=== PATIENT | female | born 1935 | race Caucasian/White ===

== ENCOUNTER 2020-11-01 19:17 | Inpatient (IN) | payer OTHER, MEDICAID ==
[~2020-11-01] VITALS: Ht 147.3 cm; Wt 88.4 kg
[2020-11-01 21:05] LABS: Nucleated Red Blood Cells % 0.1 %
[2020-11-01 21:09] LABS: Basophils # (auto) 0 10 ^3/uL (0-0.2); Basophils % (auto) 0.5 % (0.0-2.0); Eosinophils # (auto) 0.2 10 ^3/uL (0-0.8); Eosinophils % (auto) 2.4 % (0.0-7.0); Hematocrit 30.1 % (41.0-53.0); Hemoglobin 10.3 g/dL (13.5-17.5); Lymphocytes # (auto) 2.9 10 ^3/uL (0.4-5.4); Lymphocytes % (auto) 40.3 % (10.0-50.0); Mean Corpuscular Hemoglobin 32.3 pg (28.0-32.0); Mean Corpuscular Hgb Conc. 34.2 g/dL (32.0-36.0); Mean Corpuscular Volume 94.3 fL (80.0-100.0); Monocytes % (auto) 13.6 % (0.0-12.0); Neutrophils # (auto) 3.1 10 ^3/uL (1.6-8.6); Neutrophils % (auto) 43.2 % (37.0-80.0); Red Blood Cells 3.19 10^6/uL (4.5-5.90); Red Cell Distribution Width 14.9 % (11.8-14.3); White Blood Cell 7.2 10^3/uL (4.4-10.8)
[2020-11-01 21:18] LABS: INR 1.09 (0.9-1.15); Partial Thromboplastin Time 27.1 sec (23.0-31.2)
[2020-11-01 21:21] LABS: Albumin 2.6 g/dL (3.4-5.0); Anion Gap 4 (5-15); Blood Urea Nitrogen 13 mg/dL (7-18); Calcium 8.1 mg/dL (8.5-10.1); Carbon Dioxide 28 mmol/L (21-32); Chloride 112 mmol/L (98-107); Glucose 82 mg/dL (74-106); Magnesium 2.1 mg/dL (1.6-2.6); Potassium 3.5 mmol/L (3.5-5.1); Sodium 144 mmol/L (136-145)
[2020-11-01 21:28] LABS: Alanine Aminotransferase 27 U/L (16-61); Alkaline Phosphatase 134 U/L (45-117); Aspartate Aminotransferase 28 U/L (15-37); BUN/Creatinine Ratio 27.1; Bilirubin, Total 0.4 mg/dL (0.2-1.0); GFR African American 213 mL/min; GFR Non-African American 176 mL/min; Total Protein 5.4 g/dL (6.4-8.2)
[2020-11-01] MEDS ORDERED: ACETAMINOPHEN 325 MG TAB PO PRN (21:45)
[2020-11-01] MEDS ORDERED: NITROGLYCERIN 0.4 MG SL TAB SL PRN (21:45)
[2020-11-01] MEDS ORDERED: MORPHINE SULF INJ 2 MG/ML SYRINGE 1ML IV PRN (21:45)
[2020-11-01] MEDS ORDERED: ONDANSETRON HCL 4 MG/2 ML VIAL IV PRN (21:45)
[2020-11-01] MEDS ORDERED: ATORVASTATIN 20 MG TAB PO SCH (22:00)
[2020-11-02 00:41] LABS: Urine Bacteria FEW /hpf (None Seen); Urine Blood Negative /uL (Negative); Urine Hyaline Cast FEW /lpf (0 - 2); Urine Mucus FEW (None Seen); Urine Specific Gravity 1.019 (1.001-1.035); Urine WBC 21 /hpf (0 - 5)
[2020-11-02 00:50] VITALS: BP 121/66
[2020-11-02] MEDS ORDERED: LANS30CA57 PO (03:43)
[2020-11-02] MEDS ORDERED: MONT10TA42 PO (03:43)
[2020-11-02] MEDS ORDERED: METO-281 PO (03:43)
[2020-11-02] MEDS ORDERED: DORZ2SOL18 EACHEYE (03:43)
[2020-11-02] MEDS ORDERED: TIZA4CAP PO (03:43)
[2020-11-02] MEDS ORDERED: ESCI10TA PO (03:43)
[2020-11-02] MEDS ORDERED: IPRIH INH (03:43)
[2020-11-02] MEDS ORDERED: HYDR-4798 PO (03:43)
[2020-11-02] MEDS ORDERED: POTA1TAB61 PO (03:43)
[2020-11-02] MEDS ORDERED: FURO1TAB33 PO (03:43)
[2020-11-02] MEDS ORDERED: PRAM2.25 PO (03:43)
[2020-11-02] MEDS ORDERED: METO25TA93 PO (03:43)
[2020-11-02] MEDS ORDERED: DOCU1CAP31 PO (03:43)
[2020-11-02] MEDS ORDERED: LATA0.0020 EACHEYE (03:43)
[2020-11-02] MEDS ORDERED: FLUT250M2 INH (03:43)
[2020-11-02] MEDS ORDERED: ATOR80TA PO (03:43)
[2020-11-02] MEDS ORDERED: FERR-7 PO (03:43)
[2020-11-02] MEDS ORDERED: ACET-1156 PO (03:43)
[2020-11-02] MEDS ORDERED: RIVA10TA PO (03:43)
[2020-11-02] MEDS ORDERED: GLIP5TAB12 PO (03:43)
[2020-11-02 05:30] VITALS: BP 125/70
[2020-11-02 06:30] LABS: Basophils # (auto) 0 10 ^3/uL (0-0.2); Basophils % (auto) 0.6 % (0.0-2.0); Eosinophils # (auto) 0.2 10 ^3/uL (0-0.8); Eosinophils % (auto) 3.5 % (0.0-7.0); Hematocrit 32.3 % (36.0-46.0); Hemoglobin 10.9 g/dL (12.2-16.2); Lymphocytes # (auto) 2.7 10 ^3/uL (0.4-5.4); Lymphocytes % (auto) 39.6 % (10.0-50.0); Mean Corpuscular Hgb Conc. 33.9 g/dL (32.0-36.0); Mean Corpuscular Volume 94.4 fL (80.0-100.0); Monocytes # (auto) 0.8 10 ^3/uL (0-1.3); Monocytes % (auto) 12.3 % (0.0-12.0); Red Blood Cells 3.42 10^6/uL (4.0-5.20); Red Cell Distribution Width 14.9 % (11.8-14.3); White Blood Cell 6.7 10^3/uL (4.4-10.8)
[2020-11-02 07:25] LABS: Potassium 3.6 mmol/L (3.5-5.1)
[2020-11-02 07:30] LABS: Albumin 2.8 g/dL (3.4-5.0); BUN/Creatinine Ratio 34.1; Calcium 8.3 mg/dL (8.5-10.1)
[2020-11-02 07:33] LABS: Bilirubin, Total 0.6 mg/dL (0.2-1.0); Total Protein 5.6 g/dL (6.4-8.2)
[2020-11-02 09:00] VITALS: BP 145/67
[2020-11-02] MEDS ORDERED: ASPirin 81 mg TAB PO SCH (10:00)
[2020-11-02 13:00] VITALS: BP 144/67
[2020-11-02] MEDS ORDERED: levoFLOXacin 750MG 150 ML IV ONE (14:45)
[2020-11-02] MEDS ORDERED: LEVO500T31 PO (14:49)
[2020-11-02] MEDS ORDERED: levoFLOXacin 500MG 100 ML IV ONE (15:00)
[2020-11-02 17:37] VITALS: BP 145/67
[2020-11-02 17:40] VITALS: BP 141/35
[2020-11-03] MEDS ORDERED: levoFLOXacin 250MG 50 ML IV SCH (10:00)
== END 2020-11-02 18:00 | disposition hospice, home (50) | DRG 314 ==
LOC: EDSEX 19:17 → EDBD 19:17 → ER 19:17 → TELE 21:45 → TELE-EAST 23:58
PROVIDERS: ADMIT Nurse Practitioner; ATTEND Internal Medicine
DX: I95.9 Hypotension, unspecified (principal); E43 Unspecified severe protein-calorie malnutrition; N39.0 Urinary tract infection, site not specified; I20.0 Unstable angina; Z68.41 Body mass index [BMI] 40.0-44.9, adult; R07.89 Other chest pain; I50.9 Heart failure, unspecified; E11.9 Type 2 diabetes mellitus without complications; E78.5 Hyperlipidemia, unspecified; F03.90 Unspecified dementia, unspecified severity, without behavioral disturbance, psychotic disturbance, mood disturbance, and anxiety; I11.0 Hypertensive heart disease with heart failure; Z20.822 Contact with and (suspected) exposure to COVID-19; D50.9 Iron deficiency anemia, unspecified; Z90.49 Acquired absence of other specified parts of digestive tract
CPT/HCPCS: 36415; 71045; 80053; 81001; 83735; 83880; 84443; 84484; 85025; 85610; 85730; 87426; 93005; 93306; G0378

== ENCOUNTER 2020-12-14 03:33 | Inpatient (IN) | payer MEDICARE, OTHER, MEDICAID ==
[~2020-12-14] VITALS: Ht 147.3 cm; Wt 55.0 kg
[~2020-12-14 03:33] MED LIST: ACET-1156 PO; ATOR80TA PO; DOCU1CAP22 PO; DORZ2SOL18 EACHEYE; ESCI10TA PO; FERR-7 PO; FLUT250M2 INH; FURO1TAB33 PO; GLIP5TAB12 PO; HYDR-4798 PO; IPRIH INH; LANS30CA57 PO; LATA0.0020 EACHEYE; LEVO500T31 PO; METO-281 PO; METO25TA93 PO; MONT-8 PO; POTA1TAB61 PO; PRAM2.25 PO; RIVA10TA PO; TIZA4CAP PO
[2020-12-14] MEDS ORDERED: MORPHINE SULFATE 4 MG/ML SYR/VIAL IV ONE (04:30)
[2020-12-14] MEDS ORDERED: ONDANSETRON HCL 4 MG/2 ML VIAL IV ONE (04:30)
[2020-12-14 05:27] LABS: Basophils # (auto) 0 10 ^3/uL (0-0.2); Basophils % (auto) 0.4 % (0.0-2.0); Eosinophils # (auto) 0.1 10 ^3/uL (0-0.8); Hematocrit 35.3 % (36.0-46.0); Lymphocytes % (auto) 21.5 % (10.0-50.0); Mean Corpuscular Hemoglobin 31.4 pg (28.0-32.0); Mean Corpuscular Volume 92.2 fL (80.0-100.0); Monocytes # (auto) 0.8 10 ^3/uL (0-1.3); Monocytes % (auto) 9.2 % (0.0-12.0); Neutrophils # (auto) 6.2 10 ^3/uL (1.6-8.6); Neutrophils % (auto) 67.9 % (37.0-80.0); Red Blood Cells 3.82 10^6/uL (4.0-5.20); Red Cell Distribution Width 14.1 % (11.8-14.3); White Blood Cell 9.1 10^3/uL (4.4-10.8)
[2020-12-14 05:41] LABS: Albumin 3.2 g/dL (3.4-5.0); Potassium 3.8 mmol/L (3.5-5.1)
[2020-12-14 05:43] LABS: BUN/Creatinine Ratio 41.3; Bilirubin, Total 0.5 mg/dL (0.2-1.0); Total Protein 6.8 g/dL (6.4-8.2)
[2020-12-14] MEDS ORDERED: fentaNYL CITRATE 100 MCG/2 ML VL IV ONE (05:45)
[2020-12-14] MEDS ORDERED: LACTATED RINGER'S 1,000 ML IV ONE (07:15)
[2020-12-14 07:46] LABS: Urine Amorphous Crystal FEW /hpf (None Seen); Urine Blood Negative /uL (Negative); Urine Mucus FEW (None Seen); Urine Specific Gravity 1.028 (1.001-1.035); Urine WBC 5 /hpf (0 - 5)
[2020-12-14 07:48] LABS: Urine Bacteria FEW /hpf (None Seen)
[2020-12-14 07:59] LABS: INR 1.27 (0.9-1.15)
[2020-12-14] MEDS ORDERED: NITROGLYCERIN 0.4 MG SL TAB SL PRN (09:15)
[2020-12-14] MEDS ORDERED: MORPHINE SULFATE INJECTION 2 MG/ML SYRG IV PRN (09:15)
[2020-12-14] MEDS ORDERED: ONDANSETRON HCL 4 MG/2 ML VIAL IV PRN (09:45)
[2020-12-14] MEDS ORDERED: LACTULOSE 20Gm/30ML SOLN PO PRN ×2 (09:45)
[2020-12-14] MEDS ORDERED: SODIUM CHLORIDE 0.9% 1,000 ML IV SCH (09:45)
[2020-12-14] MEDS ORDERED: DEXTROSE (50%) 50ML SYRG IV PRN (09:45)
[2020-12-14] MEDS ORDERED: cefTRIAXone 1GM/50ML D5W 50 ML IV ONE (09:45)
[2020-12-14] MEDS ORDERED: ALBUTEROL SULF 2.5 MG/0.5ML(0.5%) NEB SOLN NEB PRN (09:45)
[2020-12-14] MEDS ORDERED: ACETAMINOPHEN 500 MG TAB PO PRN (09:45)
[2020-12-14] MEDS ORDERED: ENOXAPARIN SOD 40 MG/0.4 ML SYRINGE SC SCH (10:00)
[2020-12-14] MEDS: PANTOPRAZOLE 40 MG TAB PO SCH (10:00)
[2020-12-14] MEDS: AZITHROMYCIN 500MG/ 250ML 250 ML IV SCH (10:00)
[2020-12-14 10:16] VITALS: BP 102/46
[2020-12-14] MEDS: D5W/SOD CHL 0.45%/KCL 20MEQ 1,000 ML IV SCH (10:45)
[2020-12-14] MEDS: InsuLIN REG 1unit/0.01ml Soln (100units/ml) SC SCH ×3 (11:30→22:00)
[2020-12-14] MEDS: ACCU-CHEK COMFORT CURVE STRIP VI SCH ×3 (11:47→22:00)
[2020-12-14 21:00] VITALS: BP 136/50
[2020-12-14 22:20] VITALS: BP 136/50
[2020-12-14] MEDS: MORPHINE SULFATE INJECTION 2 MG/ML SYRG IV PRN (22:32)
[2020-12-14] MEDS: HYDROcodone-ACET 5/325MG TAB PO PRN (23:48)
[2020-12-15] MEDS: D5W/SOD CHL 0.45%/KCL 20MEQ 1,000 ML IV SCH ×3 (00:05→21:38)
[2020-12-15] MEDS ORDERED: BUDE0.5S IN (00:31)
[2020-12-15] MEDS ORDERED: ACET-1156 PR (00:31)
[2020-12-15] MEDS ORDERED: DICL1GEL72 EX (00:31)
[2020-12-15] MEDS ORDERED: LORA0.5T20 PO (00:31)
[2020-12-15] MEDS ORDERED: ONDA-144 PO (00:31)
[2020-12-15] MEDS ORDERED: BISA-65 PR (00:31)
[2020-12-15] MEDS: MORPHINE SULFATE INJECTION 2 MG/ML SYRG IV PRN ×3 (05:11→21:38)
[2020-12-15 05:29] LABS: Basophils # (auto) 0 10 ^3/uL (0-0.2); Basophils % (auto) 0.1 % (0.0-2.0); Eosinophils # (auto) 0 10 ^3/uL (0-0.8); Eosinophils % (auto) 0.3 % (0.0-7.0); Hematocrit 28.8 % (36.0-46.0); Hemoglobin 9.7 g/dL (12.2-16.2); Lymphocytes # (auto) 2.6 10 ^3/uL (0.4-5.4); Lymphocytes % (auto) 22.5 % (10.0-50.0); Mean Corpuscular Hemoglobin 31.4 pg (28.0-32.0); Mean Corpuscular Hgb Conc. 33.6 g/dL (32.0-36.0); Mean Corpuscular Volume 93.5 fL (80.0-100.0); Monocytes # (auto) 1.3 10 ^3/uL (0-1.3); Monocytes % (auto) 11.2 % (0.0-12.0); Neutrophils # (auto) 7.6 10 ^3/uL (1.6-8.6); Neutrophils % (auto) 65.9 % (37.0-80.0); Red Blood Cells 3.08 10^6/uL (4.0-5.20); Red Cell Distribution Width 13.9 % (11.8-14.3); White Blood Cell 11.5 10^3/uL (4.4-10.8)
[2020-12-15 05:30] VITALS: BP 125/55
[2020-12-15 05:55] LABS: Potassium 4.1 mmol/L (3.5-5.1)
[2020-12-15 06:02] LABS: BUN/Creatinine Ratio 47.4; Calcium 8.6 mg/dL (8.5-10.1)
[2020-12-15] MEDS: InsuLIN REG 1unit/0.01ml Soln (100units/ml) SC SCH ×4 (06:15→21:37)
[2020-12-15] MEDS: ACCU-CHEK COMFORT CURVE STRIP VI SCH ×4 (06:15→21:37)
[2020-12-15] MEDS: HYDROcodone-ACET 5/325MG TAB PO PRN ×3 (08:02→23:58)
[2020-12-15 08:07] LABS: INR 1.16 (0.9-1.15); Partial Thromboplastin Time 26.2 sec (23.6-33.0)
[2020-12-15] MEDS: cefTRIAXone 1GM/50ML D5W 50 ML IV SCH (09:05)
[2020-12-15] MEDS: PANTOPRAZOLE 40 MG TAB PO SCH (09:51)
[2020-12-15] MEDS: AZITHROMYCIN 500MG/ 250ML 250 ML IV SCH (09:51)
[2020-12-15 22:00] VITALS: BP 139/56
[2020-12-16] VITALS (17 sets, daily range): BP systolic 101–150; BP diastolic 41–77
[2020-12-16] MEDS: MORPHINE SULFATE INJECTION 2 MG/ML SYRG IV PRN (04:51)
[2020-12-16] MEDS: ACCU-CHEK COMFORT CURVE STRIP VI SCH ×4 (06:32→21:41)
[2020-12-16] MEDS: InsuLIN REG 1unit/0.01ml Soln (100units/ml) SC SCH ×4 (06:33→21:41)
[2020-12-16] MEDS ORDERED: BUPIVACAINE 0.5% P/F INJ 10 ML VIAL ONE (07:17)
[2020-12-16] MEDS ORDERED: MORPHINE SULF PF 2 MG/2 ML SYRG ONE (07:19)
[2020-12-16] MEDS ORDERED: fentaNYL CITRATE 100 MCG/2 ML VL ONE (07:19)
[2020-12-16] MEDS ORDERED: MIDAZOLAM HCL 2MG/2ML 2ml VIAL (1mg/ml) ONE (07:19)
[2020-12-16] MEDS ORDERED: KETAMINE HCL 10 ML ONE (07:19)
[2020-12-16] MEDS ORDERED: PROPOFOL 10 MG/ML 20 ML IV ONE (07:20)
[2020-12-16] MEDS ORDERED: GLYCOPYRROLATE 0.2 MG/ML 1ML VIAL ONE (07:20)
[2020-12-16] MEDS ORDERED: ePHEDrine SULFATE 50 MG/ML AMP ONE (07:20)
[2020-12-16] MEDS ORDERED: ONDANSETRON HCL 4 MG/2 ML VIAL ONE (07:20)
[2020-12-16] MEDS ORDERED: TRANEXAMIC ACID 20 ML ONE (08:13)
[2020-12-16] MEDS: cefTRIAXone 1GM/50ML D5W 50 ML IV SCH (09:00)
[2020-12-16] MEDS ORDERED: ACETAMINOPHEN 325 MG TAB PO PRN (09:15)
[2020-12-16] MEDS ORDERED: ceFAZolin 1GM/50ML 50 ML IV SCH (09:15)
[2020-12-16] MEDS ORDERED: HYDROcodone-ACET 10/325MG TAB PO PRN (09:15)
[2020-12-16] MEDS ORDERED: LACTATED RINGER'S 1,000 ML IV SCH (09:15)
[2020-12-16] MEDS ORDERED: ONDANSETRON HCL 4 MG/2 ML VIAL IV PRN ×2 (09:30)
[2020-12-16] MEDS ORDERED: NALOXONE HCL 0.4 MG/ML VIAL IV PRN (09:30)
[2020-12-16] MEDS ORDERED: ACCU-CHEK COMFORT CURVE STRIP VI ONE (09:30)
[2020-12-16] MEDS ORDERED: diphenhdrAMINE HCL 50 MG/1 ML VL IV PRN (09:30)
[2020-12-16] MEDS ORDERED: DexAMETHasone SOD PHOS 10MG/1ML VIAL INJ IV PRN (09:30)
[2020-12-16] MEDS: AZITHROMYCIN 500MG/ 250ML 250 ML IV SCH (10:00)
[2020-12-16] MEDS: PANTOPRAZOLE 40 MG TAB PO SCH (10:00)
[2020-12-16] MEDS: ePHEDrine SULFATE 50 MG/ML AMP IV PRN ×2 (10:43→11:02)
[2020-12-16] MEDS: SODIUM CHLOR 0.9% PF (SALINE LOCK) 10ML VIAL/SYR IV SCH ×2 (13:25→21:41)
[2020-12-16] MEDS: HYDROcodone-ACET 5/325MG TAB PO PRN (21:43)
[2020-12-17] VITALS (14 sets, daily range): BP systolic 94–153; BP diastolic 37–61
[2020-12-17] MEDS: SODIUM CHLOR 0.9% PF (SALINE LOCK) 10ML VIAL/SYR IV SCH ×3 (06:07→21:24)
[2020-12-17] MEDS: InsuLIN REG 1unit/0.01ml Soln (100units/ml) SC SCH ×4 (06:07→21:24)
[2020-12-17] MEDS: ACCU-CHEK COMFORT CURVE STRIP VI SCH ×4 (06:07→21:24)
[2020-12-17 06:21] LABS: Basophils # (auto) 0 10 ^3/uL (0-0.2); Basophils % (auto) 0.3 % (0.0-2.0); Eosinophils # (auto) 0.1 10 ^3/uL (0-0.8); Eosinophils % (auto) 1.6 % (0.0-7.0); Hematocrit 22.3 % (36.0-46.0); Hemoglobin 7.6 g/dL (12.2-16.2); Lymphocytes # (auto) 2.8 10 ^3/uL (0.4-5.4); Lymphocytes % (auto) 32.6 % (10.0-50.0); Mean Corpuscular Hemoglobin 31.4 pg (28.0-32.0); Mean Corpuscular Hgb Conc. 33.9 g/dL (32.0-36.0); Mean Corpuscular Volume 92.5 fL (80.0-100.0); Monocytes # (auto) 1.3 10 ^3/uL (0-1.3); Monocytes % (auto) 14.8 % (0.0-12.0); Neutrophils # (auto) 4.3 10 ^3/uL (1.6-8.6); Neutrophils % (auto) 50.7 % (37.0-80.0); Red Blood Cells 2.41 10^6/uL (4.0-5.20); Red Cell Distribution Width 13.8 % (11.8-14.3); White Blood Cell 8.5 10^3/uL (4.4-10.8)
[2020-12-17 06:38] LABS: Calcium 8.4 mg/dL (8.5-10.1); Potassium 4.4 mmol/L (3.5-5.1)
[2020-12-17 06:40] LABS: BUN/Creatinine Ratio 35.5
[2020-12-17] MEDS: cefTRIAXone 1GM/50ML D5W 50 ML IV SCH (10:11)
[2020-12-17] MEDS: PANTOPRAZOLE 40 MG TAB PO SCH (10:11)
[2020-12-17] MEDS: HYDROcodone-ACET 5/325MG TAB PO PRN ×3 (11:28→21:23)
[2020-12-17] MEDS: MORPHINE SULFATE INJECTION 2 MG/ML SYRG IV PRN (23:43)
[2020-12-18 05:24] VITALS: BP 125/63
[2020-12-18] MEDS: SODIUM CHLOR 0.9% PF (SALINE LOCK) 10ML VIAL/SYR IV SCH ×2 (06:25→14:00)
[2020-12-18] MEDS: InsuLIN REG 1unit/0.01ml Soln (100units/ml) SC SCH ×2 (06:26→11:30)
[2020-12-18] MEDS: ACCU-CHEK COMFORT CURVE STRIP VI SCH ×2 (06:26→12:33)
[2020-12-18] MEDS: MORPHINE SULFATE INJECTION 2 MG/ML SYRG IV PRN ×2 (06:39→15:16)
[2020-12-18 09:00] VITALS: BP 175/65
[2020-12-18] MEDS: PANTOPRAZOLE 40 MG TAB PO SCH (09:56)
[2020-12-18] MEDS: cefTRIAXone 1GM/50ML D5W 50 ML IV SCH (09:56)
[2020-12-18] MEDS: HYDROcodone-ACET 5/325MG TAB PO PRN (09:57)
[2020-12-18 13:00] VITALS: BP 121/55
== END 2020-12-18 17:30 | disposition hospice, home (50) | DRG 480 ==
LOC: ER 03:33 → EDBD 03:33 → TELE 09:04 → TELE-WESTW 20:40
PROVIDERS: ADMIT Internal Medicine; ATTEND Hospitalist
PROC: B41F1ZZ Fluoroscopy of Right Lower Extremity Arteries using Low Osmolar Contrast (ICD-10-PCS; 2020-12-16)
PROC: 0QS836Z Reposition Right Femoral Shaft with Intramedullary Internal Fixation Device, Percutaneous Approach (ICD-10-PCS; principal; 2020-12-16 07:41)
DX: S72.351A Displaced comminuted fracture of shaft of right femur, initial encounter for closed fracture (principal); J18.9 Pneumonia, unspecified organism; E44.1 Mild protein-calorie malnutrition; J96.10 Chronic respiratory failure, unspecified whether with hypoxia or hypercapnia; D50.0 Iron deficiency anemia secondary to blood loss (chronic); E78.5 Hyperlipidemia, unspecified; E11.9 Type 2 diabetes mellitus without complications; F03.90 Unspecified dementia, unspecified severity, without behavioral disturbance, psychotic disturbance, mood disturbance, and anxiety; I11.0 Hypertensive heart disease with heart failure; I50.9 Heart failure, unspecified; M19.90 Unspecified osteoarthritis, unspecified site; E66.9 Obesity, unspecified; I95.9 Hypotension, unspecified; Z20.822 Contact with and (suspected) exposure to COVID-19; W01.0XXA Fall on same level from slipping, tripping and stumbling without subsequent striking against object, initial encounter; Z51.5 Encounter for palliative care; Z80.8 Family history of malignant neoplasm of other organs or systems; Z82.5 Family history of asthma and other chronic lower respiratory diseases; Z68.25 Body mass index [BMI] 25.0-25.9, adult; Z88.8 Allergy status to other drugs, medicaments and biological substances; Y93.89 Activity, other specified; Y92.098 Other place in other non-institutional residence as the place of occurrence of the external cause; Z88.0 Allergy status to penicillin; Z90.49 Acquired absence of other specified parts of digestive tract; Y99.8 Other external cause status
CPT/HCPCS: 36415; 71045; 73502; 73562; 76001; 80048; 80053; 81001; 82962; 83036; 85025; 85610; 85730; 86850; 86900; 86901; 87081; 87086; 87426; 93005; 93306; 96361; 96365; 96366; 96368; 96372; 96375; 97110; 97116; 97163; 97530; G0378; J0696; J1815; J2250; J2405; J2704; J3490